=== PATIENT | female | born 1995 | race Caucasian/White ===

== ENCOUNTER 2023-04-18 12:12 | Inpatient (IN) ==
[2023-04-18 12:53] VITALS: BMI 26.2
[2023-04-18 13:10] LABS: AMNISURE ROM TEST THERE IS A RUPTURE (NO RUPTURE)
[2023-04-18 13:10] LABS: BILIRUBIN,URINE NEGATIVE (NEGATIVE); BLOOD/HEMOGLOBIN,URINE 1+ (NEGATIVE); GLUCOSE, URINE NEGATIVE (NEGATIVE); KETONES,URINE NEGATIVE (NEGATIVE); LEUKOCYTE ESTERASE ,URINE 1+ (NEGATIVE); NITRITES,URINE NEGATIVE (NEGATIVE); PH,URINE 6.5 (5.0 - 8.0); PROTEIN,URINE 1+ (NEGATIVE); UROBILINOGEN,URINE 2+ (NORMAL)
[2023-04-18 13:12] LABS: APPEARANCE,URINE SLIGHTLY HAZY (CLEAR); COLOR,URINE YELLOW (YELLOW)
[2023-04-18 13:19] LABS: BACTERIA,URINE 1+ /HPF (NEGATIVE); SQUAMOUS EPITHELIAL CELL,UR MANY /HPF (NEGATIVE)
[2023-04-18] MEDS: LR 1,000 ML IV 1,000 ML IV SCH (13:30)
[2023-04-18] MEDS: AMPICILLIN VIAL 2 GRAM 2 G in NS 100 ML IV + SPIKE MINIBAG* 100 ML IV SCH (14:00)
[2023-04-18] MEDS ORDERED: NUBAIN INJ 20 MG AMP IVP PRN (14:19)
[2023-04-18] MEDS ORDERED: REGLAN INJ 10 MG VIAL IVP PRN (14:19)
[2023-04-18] MEDS ORDERED: ZOFRAN INJ 4 MG VIAL IVP PRN (14:19)
[2023-04-18] MEDS ORDERED: DEMEROL INJ IVP PRN (14:19)
[2023-04-18 14:20] LABS: MEAN CORPUSCULAR VOLUME 55.4 fL (80.0-100.0); MONOCYTES # (AUTO) 0.8 x10^3/uL (0.3-0.8)
[2023-04-18 14:24] LABS: BLOOD UREA NITROGEN 6 mg/dL (7-18); CALCIUM 8.5 mg/dL (8.5-10.1); CARBON DIOXIDE 24.2 mmol/L (21-32); CHLORIDE 100 mmol/L (98-107); CREATININE 0.45 mg/dL (0.55-1.02); GLUCOSE 69 mg/dL (65-99); SODIUM 134 mmol/L (136-145); eGFR NON BLACK RACES > 60 (>60)
[2023-04-18 14:33] LABS: BASOPHILS # (AUTO) 0.1 X10^3/uL (0.0-0.1); BASOPHILS % (AUTO) 0.7 % (0.2-1.0); EOSINOPHILS # (AUTO) 0.1 x10^3/uL (0.0-0.2); EOSINOPHILS % (AUTO) 0.4 % (0.9-2.9); HEMATOCRIT 22.5 % (36.0-47.0); LYMPHOCYTES # (AUTO) 3.2 X10^3/uL (1.3-2.9); LYMPHOCYTES % (AUTO) 22.1 % (21.0-51.0); MEAN CORPUSCULAR HEMOGLOBIN 15.9 pg (27.0-34.0); MEAN CORPUSCULAR HGB CONC 28.8 g/dL (33.0-35.0); MEAN PLATELET VOLUME 8.6 fL (7.4-11.0); MONOCYTES % (AUTO) 5.4 % (0.0-13.0); NEUTROPHILS # (AUTO) 10.3 x10^3/uL (2.2-4.8); NEUTROPHILS % (AUTO) 71.4 % (42.0-75.0); PLATELET COUNT 261 X10^3/uL (150.0-450.0); RED BLOOD COUNT 4.06 X10^6/uL (3.5-5.4); RED CELL DISTRIBUTION WIDTH 22.9 % (11.6-16.5); WHITE BLOOD COUNT 14.4 X10^3/uL (3.6-10.0)
[2023-04-18 14:42] LABS: HEMOGLOBIN 6.5 g/dL (12.0-16.0)
[2023-04-18 15:18] LABS: ANISOCYTOSIS 2+; HYPOCHROMASIA 3+; MICROCYTOSIS 3+; PLATELET MORPHOLOGY COMMENT NORMAL (NORMAL); STOMATOCYTES PRESENT; TARGET CELLS PRESENT
[2023-04-18] MEDS: OXYTOCIN 20 UNIT/1,000 ML-NS 20 UNIT/1,000 ML PLAST..BAG IV PRN (15:20)
[2023-04-18] MEDS: MORPHINE SULFATE INJ 4 MG IVP PRN (16:50)
[2023-04-18] MEDS: PITOCIN IVP ONE (17:47)
[2023-04-18] MEDS ORDERED: AMPICILLIN VIAL 1 GRAM 1 G in NS 50 ML IV + SPIKE MINIBAG* 50 ML IV SCH (18:00)
[2023-04-18] MEDS ORDERED: DERMOPLAST PAIN RELIEF SPRAY TOP PRN (18:34)
[2023-04-18] MEDS ORDERED: MILK OF MAGNESIA PO PRN (18:34)
[2023-04-18] MEDS: OXYTOCIN 20 UNIT/1,000 ML-NS 20 UNIT/1,000 ML PLAST..BAG IV ONE (18:45)
[2023-04-18] MEDS: PITOCIN ONE (20:23)
[2023-04-18] MEDS: AMPICILLIN VIAL 2 GRAM ONE (20:23)
[2023-04-18] MEDS: NS 100 ML IV 100 ML ONE (20:23)
[2023-04-18] MEDS: LR 1,000 ML IV 1,000 ML IV ONE (20:24)
[2023-04-18] MEDS: MORPHINE SULFATE INJ 4 MG ONE (20:24)
[2023-04-18] MEDS: BETADINE SURGICAL SCRUB ONE (20:25)
[2023-04-18] MEDS: MOTRIN TAB 800 MG PO PRN (22:18)
[2023-04-19 05:50] LABS: HEMOGLOBIN 5.5 g/dL (12.0-16.0)
[2023-04-19 05:51] LABS: HEMATOCRIT 19.9 % (36.0-47.0)
[2023-04-19] MEDS: PRENATAL PLUS PO SCH (08:30)
[2023-04-19] MEDS: INFeD or DEXFERRUM 25 MG in NS 100 ML IV 100 ML IV ONE (08:30)
[2023-04-19] MEDS: INFeD or DEXFERRUM 1,175 MG in NS 500 ML IV 500 ML IV ONE (10:28)
[2023-04-20 04:35] VITALS: RESP 20
[2023-04-20 14:32] VITALS: BP 109/67; PULSE 88; TEMP 98; O2SAT 99
[2023-04-20 18:22] LABS: SICKLE CELL SOLUBILITY Not Performed
== END 2023-04-20 14:20 | disposition home or self-care (01) | DRG 807 ==
LOC: ER 12:12 → LD 13:01 → MED/SURG 19:27
PROVIDERS: ADMIT Obstetrics & Gynecology Obstetrics; ATTEND Obstetrics & Gynecology Obstetrics
DX: Z3A.41 41 weeks gestation of pregnancy; O80 Encounter for full-term uncomplicated delivery; Z37.0 Single live birth